=== PATIENT | female | born 1955 | race Caucasian/White ===

== ENCOUNTER → 2018-06-07 | Outpatient (CLI) | payer BC ==
--- NOTE | 2018-06-07 11:24 | PCVCIMAG ---
APPROVED REPORT Study performed: 06/07/2018 10:05:44 EXAM: Comprehensive 2D, Doppler, and color-flow Echocardiogram Patient Location: Echo lab Room #: 3Status: routine BSA: 2.09 HR: 62 bpmBP: 136/92 mmHg Rhythm: NSR Other Information Study Quality: Good Risk Factors: Cardiac Risk Factors: HTN,anjana, Indications Atrial flutter 2D Dimensions IVSd: 8.80 (7-11mm)LVOT Diam: 20.69 (18-24mm) LVDd: 52.47 mm PWd: 7.53 (7-11mm)Ascending Ao: 30.03 (22-36mm) LVDs: 32.09 (25-40mm) Left Atrium: 33.68 (27-40mm) Aortic Root: 26.95 mm LV Single Plane 4CH: 61.15 % LV Single Plane 2CH: 67.06 % Biplane EF: 65.3 % Volumes Left Atrial Volume (Systole) Single Plane 4CH: 83.83 mLSingle Plane 2CH: 77.88 mL Biplane LA Volume: 87.00 mLLA ESV Index: 41.00 mL/m2 Aortic Valve AoV Peak Bulmaro.: 1.66 m/s AO Peak Gr.: 11.02 mmHgLVOT Max P.15 mmHg LVOT Max V: 1.02 m/s MICHAEL Vmax: 2.06 cm2 Mitral Valve E/A Ratio: 1.4 MV Decel. Time: 190.11 ms MV E Max Bulmaro.: 1.00 m/s MV A Bulmaro.: 0.69 m/s MV PHT: 55.13 ms IVRT: 93.43 ms TDI E/Lateral E': 9.09E/Medial E': 11.11 Medial E' Bulmaro.: 0.09 m/s Lateral E' Bulmaro.: 0.11 m/s Pulmonary Valve PV Peak Bulmaro.: 0.95 m/sPV Peak Gr.: 3.62 mmHg Pulmonary Vein P Vein S: 0.59 m/sP Vein A: 0.31 m/s P Vein D: 0.40 m/sP Vein A Dur.: 110.7 msec P Vein S/D Ratio: 1.48 Tricuspid Valve TR Peak Bulmaro.: 2.35 m/s TR Peak Gr.: 22.07 mmHg TV Vmax: 0.86 m/sPA Pressure: 29.00 mmHg Left Ventricle The left ventricle is normal size. There is normal LV segmental wall motion. There is normal left ventricular wall thickness. Left ventricular systolic function is normal. The left ventricular ejection fraction is within the normal range. LVEF is 60-65%. Right Ventricle The right ventricle is normal size. The right ventricular systolic function is normal. Atria Left atrium is mildly dilated. The right atrium size is normal. Aortic Valve The aortic valve is normal in structure. No aortic regurgitation is present. There is no aortic valvular stenosis. Mitral Valve The mitral valve is normal in structure. There is no mitral valve regurgitation noted. No evidence of mitral valve stenosis. Tricuspid Valve The tricuspid valve is normal in structure. Trace to mild tricuspid regurgitation. No pulmonary hypertension. Pulmonic Valve The pulmonary valve is normal in structure. There is no pulmonic valvular regurgitation. Great Vessels The aortic root is normal in size. The ascending aorta is normal in size. Aortic arch is normal in caliber. IVC is normal in size and collapses >50% with inspiration. Pericardium There is no pericardial effusion. There is no pleural effusion. <Conclusion> The left ventricle is normal size. There is normal left ventricular wall thickness. Left ventricular systolic function is normal. The right ventricle is normal size. Left atrium is mildly dilated. The aortic valve is normal in structure. The mitral valve is normal in structure. Trace to mild tricuspid regurgitation.
== END | disposition home or self-care (01) ==
LOC: PCVCIMAG 09:52
PROVIDERS: ATTEND Internal Medicine Cardiovascular Disease
DX: I48.92 Unspecified atrial flutter (principal); I10 Essential (primary) hypertension; G47.33 Obstructive sleep apnea (adult) (pediatric)
CPT/HCPCS: 93306